=== PATIENT | female | born 1970 | race Caucasian/White ===

== ENCOUNTER 2023-04-20 14:54 | Emergency (ER) | payer OTHER, SELFPAY ==
--- NOTE | ~2023-04-20 | XR_ITS ---
EXAMINATION: XR RIBS, RIGHT CLINICAL INFORMATION: Injury pain COMPARISON: No prior exam available. TECHNIQUE: Chest frontal, 3 oblique views of the ribs total of 4 views FINDINGS: RIBS: Skeletal structures are normal. LUNGS AND FLAQUITO: Both lungs are clear. PLEURA: Normal. Costophrenic angles are sharp, no pneumothorax. HEART: The heart is normal in size. MEDIASTINUM: The mediastinum is within normal limits.. XR/XR ribs RT min 3V w CXR1V IMPRESSION: 1. No radiographic evidence of rib fracture. 2. No radiographic evidence of acute cardiopulmonary disease.
--- NOTE | 2023-04-20 15:06 | ED.BACK ---
HPI - Back Pain/Injury General Chief Complaint: Fall Stated Complaint: Fell 1 week ago - back/rib pain Time Seen by Provider: 04/20/23 16:38 Source: patient Mode of arrival: ambulatory Limitations: no limitations History of Present Illness HPI Narrative: 52 year old female with no significant pmhx presents to the ED today for evaluation of right rib pain s/p mechanical fall 7 days ago. States that she was walking up the steps to her back door when she lost her balance, causing her to fall on her right side. Reports hitting the right side of her ribs on the step. Denies head strike or LOC. not on AC. she reports increased pain to her right lower rib area since the fall. Has been taking Aleve at home with minimal relief of pain. Pain is localized to the lateral and posterior right lower rib area. She has not noticed any bruising to the area. States that she has a flight tomorrow morning and her doctor advised her to come to the ED for an x-ray to make sure she does not have a fractured rib. Denies IV drug use. Denies fever, chills, neck pain, chest pain, shortness of breath, dyspnea, bowel or bladder incontinence or retention, numbness/tingling/weakness in the lower extremities, dysuria, hematuria, saddle anesthesia. Related Data Previous Rx's Medication Instructions Recorded cyclobenzaprine 5 mg tablet 5 mg PO BEDTIME PRN muscle spasm 04/20/23 #4 tabs lidocaine 5 % topical patch 1 patch topical DAILY #15 ea 04/20/23 (Lidoderm) Allergies Allergy/AdvReac Type Severity Reaction Status Date / Time penicillin V Allergy Unknown unknown Verified 09/11/15 00:00 Penicillins [PENICILLINS] Allergy Unknown unknown Unverified 01/13/20 19:04 Review of Systems Review of Systems: Constitutional: No fever, chills, fatigue, night sweats, weight changes ENT/Mouth: No ear pain, hearing loss, nasal congestion, sinus pain, rhinorrhea, sore throat Eyes: No eye pain, swelling, redness, vision changes, discharge Cardio: No chest pain, palpitations, ANTHONY, orthopnea, peripheral edema Pulm: No SOB, cough, sputum, wheezing, dyspnea, hemoptysis GI: No nausea, vomiting, hematemesis, abdominal pain, diarrhea, constipation, hematochezia, melena : No irregular bleeding, dysuria, frequency, urgency, hesitancy, hematuria, flank pain, urinary flow changes, urinary incontinence or retention MSK: Back pain, +rib pain, No neck pain, joint pain, myalgias Skin: No lesions, rashes Neuro: No weakness, numbness, paresthesias, LOC, dizziness, headache All other systems reviewed and are negative. [facility] Social History Social History Advance Directives: No Advance Directives Information Provided: Yes Physical Exam Vital Signs: Vital Signs: Last Vital Signs Temp 97.8 F 04/20/23 15:29 Pulse 95 04/20/23 15:29 Resp 18 04/20/23 15:29 BP 151/77 H 04/20/23 15:29 Pulse Ox 97 04/20/23 15:29 O2 Del Method Room Air 04/20/23 15:29 BMI result Body Mass Index 31.9 Vital signs stable, afebrile Const: General: cooperative, healthy appearing, comfortable, no acute distress, alert, awake and Physically active Orientation/consciousness: patient oriented x3 HEENT: Head: Yes normal to inspection, Yes normocephalic and Yes atraumatic Eyes: General: appearance normal, both eyes and all related structures Pupils: Equal, round and reactive pupils present EOM: EOMs intact bilaterally Neck: Other: + no cervical midline spinous tenderness or step-off deformity. Neck: Yes normal visual inspection and Yes full ROM Chest: Other: + No overlying skin changes or obvious deformity noted to anterior, lateral or posterior chest wall. Minimal tenderness to palpation over the 7-9th posterior ribs. No palpable deformity. Chest palpation & inspection: normal inspection of the chest and no crepitus Resp: Effort & Inspection: normal respiratory effort and able to speak in complete sentences Auscultation: clear to auscultation bilaterally, no wheezes and lung sounds not diminished Cardio: Rate: regular rate Rhythm: regular rhythm GI: Inspection: Yes normal to inspection Palpation (GI): Soft to palpation and nontender : General: Yes no CVA tenderness Back/Spine/Pelvis: Other: No midline spinous tenderness. No paraspinal muscle tenderness. No step off deformity. Back: no CVA tenderness Skin: General skin exam: no rashes or lesions noted Neuro: Other: Strength 5/5 intact throughout.? No saddle anesthesia.? Sensation intact to light touch.? Neurovascular intact distally.? General: patient oriented x3 and gait normal Cranial nerves: Yes Equal, round and reactive pupils present Gait exam (Neuro): Normal gait present Course Course Course Narrative: This is an RME: Additional HPI, ROS, PE not included below will be deferred to primary provider. Patient is continued female presents emergency department for evaluation of rib pain. She reports a mechanical fall on the stairs 1 week ago. She landed with her right lateral back/chest wall onto the side of the stair. She denies there being any head strike or loss of consciousness. She had pain to this area over the past week but became worse yesterday without any new injury. Denies shortness of breath but pain is reproducible to deep inspiration. Denies associated fever, chills, anterior chest pain, nausea, vomiting, abdominal pain. Reports history of cholecystectomy. Plan: XR ribs Reevaluation(s) Reevaluation #1: X-ray ribs unremarkable. No evidence of acute fracture. No obvious pneumothorax. Patient likely has a muscle strain. Informed patient of imaging results. Offered to send muscle relaxer and Lidoderm patches to patient's pharmacy. Discussed worrisome signs symptoms and when to return to the ED. Patient has remained stable throughout ED visit today. She is ambulating with steady gait. All questions answered at this time. Patient is agreeable with disposition and stable for discharge. Medical Decision Making Medical Decision Making MDM Narrative: 52 year old female with no significant pmhx presents to the ED today for evaluation of right rib pain s/p mechanical fall 7 days ago. VSS. Patient is nontoxix appearing and in NAD. No overlying skin changes or obvious deformity noted to anterior, lateral or posterior chest wall. Minimal tenderness to palpation over the 7-9th posterior ribs. No palpable deformity. Lungs CTA bilaterally. No midline spinous tenderness or step off deformity. Concern for MSK sprain/strain, rib fracture, pneumothorax, pulmonary contusion. Unlikely intra-abdominal pathology, liver laceration, hematoma, cord compression, cauda equina, Guill[place], epidural abscess. Plan for imaging and pain control. Differential Diagnosis Differential Diagnoses: The differential diagnosis associated with the presentation includes as above Admission/Observation Not indicated. Independent Interpretation I performed an independent interpretation of an: Plain X-Ray Interpretation: XR right ribs without acute fracture. No evidence of pneumothorax. Agree with radiologist's interpretation. Radiology Impression Discussion of test interpretation with radiology: I have reviewed the radiologist's reading. Radiologist Impression: XR ribs RT min 3V w CXR1V IMPRESSION: 1. No radiographic evidence of rib fracture. 2. No radiographic evidence of acute cardiopulmonary disease. External Record Review External record reviewed: Inpatient record Prescription Management I considered prescription management with: Pain Medication and Other (Muscle relaxer) Discharge Plan Discharge Clinical Impression: Rib pain on right side Patient Disposition: Home, Self-Care Instructions: Musculoskeletal Pain (ED) Additional Instructions: Your chest x-ray was normal and does not exhibit a rib fracture or lung pathology. You likely have a muscle strain. Avoid bending, lifting, or twisting. Use ice several times per day for 20 minutes at a time for the next 48 hours and then change to heat. Flexeril is a muscle relaxer. Take this at night as it makes you drowsy. Do not drive, drink alcohol, or operate machinery while taking it. Lidoderm patches are numbing patches. Apply to painful areas. In addition you may take Tylenol or Aleve at home. Follow up with your primary care provider as needed If your pain worsens, if you develop new numbness, tingling, weakness, loss of bowel or bladder function call 911 or return to the ER immediately for evaluation. Prescriptions: New lidocaine [Lidoderm] 5 % adhesive patch,medicated 1 patch topical DAILY Qty: 15 0RF Rx Instructions: leave on most painful area for up to 12 hrs cyclobenzaprine 5 mg tablet 5 mg PO BEDTIME PRN (Reason: muscle spasm) Qty: 4 0RF Referrals: Jennifer Kellogg NP [Primary Care Provider] - Interventions: ED Discharge Assessment Last Done: 04/20/23 18:17 Discharge Date/Time: 04/20/23 18:18
[2023-04-20 15:29] VITALS: BP 151/77; PULSE 95; RESP 18; TEMP 36.6; O2SAT 97; BMI 31.9
== END 2023-04-20 18:18 | disposition home or self-care (01) ==
PROVIDERS: Emergency Provider Emergency Medicine; PCP Nurse Practitioner
DX: R07.81 Pleurodynia (principal); Z91.81 History of falling
CPT/HCPCS: 71101; 99282; 99283

== ENCOUNTER 2024-10-20 08:36 | Outpatient (AMB) | payer OTHER, SELFPAY ==
[2024-10-20 08:41] VITALS: BP 124/55; PULSE 72; O2SAT 97; BMI 32.2
--- NOTE | 2024-10-20 08:41 | A.OFFVIS_ITS ---
Vital Signs 10/20/24 08:41 Height 5 ft 8 in Weight 212 lb BMI 32.2 BP 124/55 L Blood Pressure Location Lt brachial Position Sitting Pulse 72 Pulse Oximetry (%) 97 Oxygen Delivery Method Room Air Intake Visit Reasons: colo screening Intake Note: Patient new consult for 1st pre Colonoscopy screening. Patient denies any GI issues. Log Roper Required: No Accompanied by: Self / Same As Patient Allergies penicillin V Allergy (Unknown, Verified 10/20/24 08:41) unknown Penicillins (PENICILLINS) Allergy (Unknown, Verified 10/20/24 08:41) unknown Medication List - Last Reconciled 10/20/24 by Deyanira Duff CNP HPI HPI colo screening: Details: PCP NATI Monroy Patient is a 53 -year-old female by with PMH of alcohol dependence and hyperlipdemia. Referred by PCP for pre colonoscopy screening and further evaluation of abdominal pain. She reports experiencing occasional right upper quadrant abdominal pain which she describes as dull. This pain started a couple of months ago, following years after her gallbladder removal. She believes it could be phantom pain. Previously, blood work and an ultrasound confirmed a diagnosis of fatty liver. She noticed the pain more when she consumed alcohol excessively and took more ibuprofen than recommended. Pain is rated as moderate and occurs occasionally. She reports regular bowel movements, typically once every morning, with no constipation, occasional runny stools when she drinks, and no blood in stools. There is no associated nausea, vomiting, pyrosis, or difficulty swallowing unless she eats pizza in excess. Patient denies: fever/chills, appetite changes, regurgitation, unintentional wt loss or melena/hematochezia. Social History Diet: Regular, balanced diet, engages in upper strength training exercises every other day. Consumes a plain seltzer water that she makes herself. Interested in liver detox diets. Alcohol Use: Initially drank socially, then progressed to nightly during the pandemic. Currently consumes four nips plus one gin seltzer three to four times a week. Tobacco Use: Current smoker, between half a pack and a pack per day. Drug Use: No recreational drug use. - family hx as below -denies personal hx of CA - denies significant cardiopulmonary history -tolerated anesthesia in the past without difficulty. [facility] Medical History (Updated 10/20/24 @ 21:28 by Deyanira Duff CNP) Abdominal pain Colon cancer screening Surgical History Hx of cholecystectomy Family History Father Hyperlipemia Mother Depression Paternal Grandfather Myocardial infarction Maternal Grandmother Depression Brother Depression Maternal Grandfather Cirrhosis of liver Social History Household Members: Family Alcohol intake: current Alcohol intake frequency: a few times a week Patient Tobacco Use Status: Current everyday Tobacco user Tobacco use type: Cigarette Review of Systems Const Reports as per HPI ENT Reports as per HPI Card Reports as per HPI Resp Reports as per HPI GI Reports as per HPI Reports as per HPI Physical Exam Vital Signs: Last Vital Signs Pulse 72 10/20/24 08:41 BP 124/55 L 10/20/24 08:41 Pulse Ox 97 10/20/24 08:41 Oxygen Delivery Method Room Air 10/20/24 08:41 BMI result Body Mass Index 32.2 Const General: healthy appearing, no acute distress and well developed Nutritional Appearance: well nourished Orientation/consciousness: patient oriented x3 HEENT Head: Yes normal to inspection, Yes normocephalic and Yes atraumatic Face and sinus: Yes normal facial exam Eyes General: appearance normal, both eyes and all related structures Neck Neck: Yes normal visual inspection Resp Effort & Inspection: normal respiratory effort, able to speak in complete sentences, no tracheal deviation and symmetric chest movement Auscultation: clear to auscultation bilaterally Cardio Jugular venous distension: no JVD Rate: regular rate Rhythm: regular rhythm Heart sounds: S1 normal heart sound present, S2 normal heart sound present, no gallops and no murmurs GI Inspection: Yes normal to inspection, No distended, Yes obesity and Yes striae Palpation (GI): Soft to palpation, not firm, nontender and No hepatosplenomegaly present Auscultation: normal bowel sounds Neuro General: patient oriented x3 Gait exam (Neuro): Normal gait present Psych Appearance: grossly normal Mental Status: mental status grossly normal Speech and movement: Normal speech and movement present Affect: normal affect Attitude: cooperative Thought process: Normal thought process present Thought content: Normal thought content present Insight: Good insight present (Psych) Judgement: Good judgement present (Psych) Assessment & Plan Assessment & Plan (1) Colon cancer screening: Code(s): Z12.11 - Encounter for screening for malignant neoplasm of colon Category: Medical Plan: Due for index screening colonoscopy Medications: -prescriptions for laxative tablets and MiraLax sent to pharmacy; instructions for Gatorade purchase and clear liquid diet given. Patient educated on scheduling process, procedure preparation, including avoiding certain foods and ensuring clear liquid intake Advised on necessity for ride post-procedure due to sedation. Next (2) Abdominal pain: Code(s): R10.9 - Unspecified abdominal pain Category: Medical Qualifiers: Abdominal location: right lower quadrant Qualified Code(s): R10.31 - Right lower quadrant pain Plan: Status post cholecystectomy. Workup initiated by PCP that includes slightly elevated H&H and normal CMP. Reviewed Ultrasound shared by patient that indicated evidence of fatty liver. She will share the full report with us via the portal. Additional Tests: Regular blood work to monitor liver function through PCP. Reach out to patient via portal to discuss completing upper endoscopy at time of colonoscopy given chronic alcohol use. We will add to order if patient is agreeable. Medications: None required currently. Lifestyle Modifications: Monitor and reduce alcohol intake, maintain balanced diet, increase physical activity. Plan Follow-up after endoscopy or sooner as needed Time: I spent a total of 45 minutes on the date of encounter which includes: Preparing to see the patient (reviewed previous documentation, test results and medical history) Performing a medically appropriate exam and/or evaluation Ordering medications, tests, and procedures Documenting clinical information in the health record Medications: New bisacodyl Take four tablets once for 1 day per colonoscopy instructions 5 mg PO ONCE 4 tabs 0RF 1 day polyethylene glycol 3350 (Miralax) per colonoscopy prep instructions 238 grams PO ONCE 238 grams 0RF Coding Level of Care Code New Pt New Pt Level 4 (47946) Patient Type New Diagnoses Colon cancer screening Z12.11 Right lower quadrant abdominal pain R10.31 Abdominal location: right lower quadrant
== END 2024-10-20 09:25 | disposition home or self-care (01) ==
LOC: HO.HGI 08:36
PROVIDERS: PCP Nurse Practitioner; Visit Provider Nurse Practitioner Family
DX: R10.11 Right upper quadrant pain (principal); Z01.818 Encounter for other preprocedural examination; Z12.11 Encounter for screening for malignant neoplasm of colon
CPT/HCPCS: 99204

== ENCOUNTER → 2024-10-20 08:36 | Outpatient (BNVA) | payer OTHER, SELFPAY | PROVIDERS: PCP Nurse Practitioner; Visit Provider Nurse Practitioner Family | DX: Z12.11 Encounter for screening for malignant neoplasm of colon (principal); R10.31 Right lower quadrant pain | CPT/HCPCS: 99202 ==